=== PATIENT | female | born 1960 | race Caucasian/White ===

== ENCOUNTER 2018-12-25 23:48 | Emergency (ER) | payer OTHER, MEDICARE ==
[~2018-12-25] VITALS: Ht 162.6 cm; Wt 59.0 kg
[2018-12-25 23:55] VITALS: Ht 162.6 cm; Wt 59.0 kg
[2018-12-26 10:03] VITALS: BP 134/72
== END 2018-12-26 10:03 | disposition home or self-care (01) ==
LOC: ED 23:48
DX: S00.83XA Contusion of other part of head, initial encounter (principal); W01.0XXA Fall on same level from slipping, tripping and stumbling without subsequent striking against object, initial encounter; Y93.89 Activity, other specified; Y92.89 Other specified places as the place of occurrence of the external cause; Y99.8 Other external cause status
CPT/HCPCS: J1200; J2060